=== PATIENT | female | born 1980 | race Caucasian/White ===

== ENCOUNTER → 2017-07-11 | Outpatient (CLI) | payer BC ==
[~2017-07-11] MED LIST: ASPI-1471 PO; ENOX30DI4 SQ; ENOX40DI8 SQ; ESTR0.62 PO; ESTR1.2525 PO; PROG100C PO; PROG50VI4 IM
[2017-07-11 15:22] LABS: PLATELET COUNT, AUTOMATED 100 K/uL (150-450)
== END ==
LOC: LAB 14:53
PROVIDERS: ATTEND Obstetrics & Gynecology
DX: O13.3 Gestational [pregnancy-induced] hypertension without significant proteinuria, third trimester (principal)
CPT/HCPCS: 36415; 82040; 82247; 82310; 82374; 82435; 82565; 82570; 82947; 84075; 84132; 84155; 84156; 84295; 84450; 84460; 84520; 85025